=== PATIENT | female | born 1945 | race African-American/Black ===

== ENCOUNTER → 2016-10-10 | Outpatient (CLI) | payer OTHER ==
[2015-07-22 12:24] VITALS: BP 158/77
--- NOTE | 2016-10-10 10:47 | RAD ---
Indication pain and swelling. Grayscale color Doppler and spectral imaging was performed. The examination was targeted to the veins of the right lower extremity. Common femoral, femoral and popliteal vessels demonstrate normal flow compressibility and augmentation. No thrombus is seen. Some edema was noted during the examination. Superficial varicosities, compatible with varicose veins, were noted during the exam. IMPRESSION: Negative right lower extremity venous analysis for DVT
== END | disposition home or self-care (01) ==
LOC: US 09:39
PROVIDERS: ATTEND Nurse Practitioner Adult Health
DX: M79.604 Pain in right leg (principal); M79.89 Other specified soft tissue disorders
CPT/HCPCS: 93971

== ENCOUNTER 2020-12-04 13:09 | Emergency (ER) | payer MEDICARE, OTHER ==
[~2020-12-04] VITALS: Ht 165.1 cm; Wt 62.0 kg
[2020-12-04] MEDS ORDERED: VANCOMYCIN PER PHARMACY MC ONE (14:45)
[2020-12-04] MEDS ORDERED: VANCOMYCIN 1.5 GM in IV NORMAL SALINE 500ML BAG 500 ML IV ONE (14:45)
[2020-12-04 15:10] LABS: BASO # 0.1 x10^3/uL (0.0-0.2); BASO % 1 % (0-3); EOS # 0.1 x10^3/uL (0.0-0.7); EOS % 2 % (0-3); HEMATOCRIT 36.8 % (36.0-47.0); HEMOGLOBIN 12.2 g/dL (12.0-15.5); LYMPH # 1.6 x10^3/uL (1.0-4.8); LYMPH % 28 % (24-48); MEAN CORPUSCULAR HEMOGLOBIN 29 pg (25-35); MEAN CORPUSCULAR HGB CONC 33 g/dL (31-37); MEAN CORPUSCULAR VOLUME 87 fL (79-100); MONO # 0.8 x10^3/uL (0.0-1.1); MONO % 13 % (0-9); NEUT # 3.3 x10^3/uL (1.8-7.7); NEUT % 56 % (31-73); PLATELET COUNT 289 x10^3/uL (140-400); RED BLOOD COUNT 4.22 x10^6/uL (3.50-5.40); WHITE BLOOD COUNT 5.8 x10^3/uL (4.0-11.0)
[2020-12-04 15:22] LABS: CALCIUM 8.8 mg/dL (8.5-10.1); CREATININE 0.9 mg/dL (0.6-1.0); GFR 73.7; POTASSIUM 3.7 mmol/L (3.5-5.1)
--- NOTE | 2020-12-04 15:25 | RAD ---
EXAM: Left lower extremity venous Doppler. HISTORY: Left lower extremity pain/swelling. In the right. COMPARISON: None. FINDINGS: Grayscale and Doppler analysis of the left lower extremity deep venous system was performed with graded compression and augmentation. The common femoral, greater saphenous, superficial femoral , popliteal and calf veins were assessed. There is no evidence of deep venous thrombosis. A small popliteal cyst measures 2.5 x 5.0 x 1.0 cm. IMPRESSION: 1. No evidence of deep venous thrombosis. 2. Small popliteal cyst. Electronically signed by: Hiram Morel MD (12/04/2020 3:23 PM) [id number]
--- NOTE | 2020-12-04 15:31 | PHYS DOC ---
Past Medical History Past Medical History: Arthritis Past Surgical History: No Surgical History Smoking Status: Never Smoker Alcohol Use: None Drug Use: None General Adult EDM: Chief Complaint: INSECT BITE HPI: HPI: Patient is a 75 year old female who presents with states she had what she thought was a bug bite to her back of her left lower leg and is gotten swollen and tight feeling. She states she has been rubbing peroxide and alcohol in the area but is not helping. She states that her pain is an 8 out of 10 especially when she is up and walking on it. She states been going on for last 2 days. She states there was no actual bump. She states that her only history is arthritis. She states that she is fully vaccinated with for Covid. She states that she took Tylenol and naproxen this morning. Review of Systems: Review of Systems: Constitutional: Denies fever or chills. [] Eyes: Denies change in visual acuity. [] HENT: Denies nasal congestion or sore throat. [] Respiratory: Denies cough or shortness of breath. [] Cardiovascular: Denies chest pain or + left lower leg edema. [] GI: Denies abdominal pain, nausea, vomiting, bloody stools or diarrhea. [] : Denies dysuria. [] Musculoskeletal: Denies back pain or joint pain. + Left lower leg pain [] Integument: Denies rash. + Left lower leg redness [] Neurologic: Denies headache, focal weakness or sensory changes. [] Endocrine: Denies polyuria or polydipsia. [] Lymphatic: Denies swollen glands. [] Psychiatric: Denies depression or anxiety. [] Heart Score: C/O Chest Pain: No Risk Factors: Risk Factors: DM, Current or recent (<one month) smoker, HTN, HLP, family history of CAD, obesity. Risk Scores: Score 0 - 3: 2.5% MACE over next 6 weeks - Discharge Home Score 4 - 6: 20.3% MACE over next 6 weeks - Admit for Clinical Observation Score 7 - 10: 72.7% MACE over next 6 weeks - Early Invasive Strategies Current Medications: Current Medications Medications (Trade) Dose Ordered Sig/Reena Start Time Stop Time Status Last Admin Dose Admin Vancomycin HCl (Vanco Per Pharmacy) 1 each 1X ONCE 12/04/20 14:45 12/04/20 14:46 UNV Vancomycin HCl 1.5 gm/Sodium Chloride 500 ml @ 250 mls/hr 1X ONCE 12/04/20 14:45 12/04/20 16:44 12/04/20 14:45 250 MLS/HR Allergies: Allergies: Allergies Coded Allergies Type Severity Reaction Last Updated Verified No Known Drug Allergies 07/22/15 No Physical Exam: PE: Constitutional: Well developed, well nourished, no acute distress, non-toxic appearance. [] HENT: Normocephalic, atraumatic, bilateral external ears normal, oropharynx moist, no oral exudates, nose normal. [] Eyes: PERRLA, EOMI, conjunctiva normal, no discharge. [] Neck: Normal range of motion, no tenderness, supple, no stridor. [] Cardiovascular:Heart rate regular rhythm, no murmur [] Lungs & Thorax: Bilateral breath sounds clear to auscultation [] Abdomen: Bowel sounds normal, soft, no tenderness, no masses, no pulsatile masses. [] Skin: Warm, dry, left lower leg erythema, no rash. [] Back: No tenderness, no CVA tenderness. [] Extremities: Left lower leg tenderness, no cyanosis, no clubbing, ROM intact, left lower leg 1+ edema. [] Neurologic: Alert and oriented X 3, normal motor function, normal sensory function, no focal deficits noted. [] Psychologic: Affect normal, judgement normal, mood normal. [] Current Patient Data: Labs: Laboratory Tests Test 12/04/20 14:56 White Blood Count 5.8 x10^3/uL (4.0-11.0) Red Blood Count 4.22 x10^6/uL (3.50-5.40) Hemoglobin 12.2 g/dL (12.0-15.5) Hematocrit 36.8 % (36.0-47.0) Mean Corpuscular Volume 87 fL (79-100) Mean Corpuscular Hemoglobin 29 pg (25-35) Mean Corpuscular Hemoglobin Concent 33 g/dL (31-37) Red Cell Distribution Width 14.0 % (11.5-14.5) Platelet Count 289 x10^3/uL (140-400) Neutrophils (%) (Auto) 56 % (31-73) Lymphocytes (%) (Auto) 28 % (24-48) Monocytes (%) (Auto) 13 % (0-9) H Eosinophils (%) (Auto) 2 % (0-3) Basophils (%) (Auto) 1 % (0-3) Neutrophils # (Auto) 3.3 x10^3/uL (1.8-7.7) Lymphocytes # (Auto) 1.6 x10^3/uL (1.0-4.8) Monocytes # (Auto) 0.8 x10^3/uL (0.0-1.1) Eosinophils # (Auto) 0.1 x10^3/uL (0.0-0.7) Basophils # (Auto) 0.1 x10^3/uL (0.0-0.2) Laboratory Tests 12/04/20 14:56 Vital Signs: Vital Signs Date Time Temp Pulse Resp B/P (MAP) Pulse Ox O2 Delivery O2 Flow Rate FiO2 12/04/20 15:16 80 14 159/60 (93) 98 Room Air 12/04/20 13:49 99.4 99.4 EKG: EKG: [] Radiology/Procedures: Radiology/Procedures: [] Impression: [facility] [address] [place] [address] IMAGING REPORT Signed PATIENT: BOB ALVES CACCOUNT: [id number] : 1945 LOCATION: ER AGE: 75 SEX: F EXAM STATUS: REG ER ORD. PHYSICIAN: RHONDA REA APRN REASON: swelling, tenderness PROCEDURE: VENOUS LOWER EXTREMITY LEFT EXAM: Left lower extremity venous Doppler. HISTORY: Left lower extremity pain/swelling. In the right. COMPARISON: None. FINDINGS: Grayscale and Doppler analysis of the left lower extremity deep venous system was performed with graded compression and augmentation. The common femoral, greater saphenous, superficial femoral, popliteal and calf veins were assessed. There is no evidence of deep venous thrombosis. A small popliteal cyst measures 2.5 x 5.0 x 1.0 cm. IMPRESSION: 1. No evidence of deep venous thrombosis. 2. Small popliteal cyst. Electronically signed by: Hiram Morel MD (12/04/2020 3:23 PM) [id number] DICTATED and SIGNED BY: MAGDALENE MOREL MD DATE: 12/04/20 [id number] Course & Med Decision Making: Course & Med Decision Making Pertinent Labs and Imaging studies reviewed. (See chart for details) See HPI. Alert and oriented x4. Ambulatory steady gait. Speaks in full clear sentences. Pedal pulses strong present. Skin pink warm and dry. Cap refill less than 2 seconds. Blood work unremarkable. Lactic is normal. Vital signs within normal limits. Patient is nonseptic appearing. Patient has no major comorbidities. Patient is stable. Patient is given a dose of IV vancomycin in the ED. I will send her home on Clindamycin antibiotic. Patient to follow-up with her primary care provider soon as possible. [] Dragon Disclaimer: Dragjeremi Disclaimer: This electronic medical record was generated, in whole or in part, using a voice recognition dictation system. Departure Departure Impression: Primary Impression: Cellulitis Qualified Codes: L03.116 - Cellulitis of left lower limb Disposition: HOME / SELF CARE / HOMELESS Condition: STABLE Referrals: ALBER PAZ D.O. (PCP) Patient Instructions: Cellulitis Additional Instructions: Follow-up with your primary care provider this coming week. Take medication as prescribed and with food. If begin running fever or it worsens significantly then return to the emergency room. Scripts Clindamycin Hcl (CLINDAMYCIN HCL) 150 Mg Capsule 1 CAP PO TID, #30 CAP Prov: RHONDA REA APRN 12/04/20 RHONDA REA APRN Dec 04, 2020 15:31
[2020-12-04 15:35] LABS: ALBUMIN 3.6 g/dL (3.4-5.0); TOTAL BILIRUBIN 0.4 mg/dL (0.2-1.0); TOTAL PROTEIN 7.1 g/dL (6.4-8.2)
[2020-12-04] MEDS ORDERED: CLIN150C16 PO (16:32)
[2020-12-04 16:34] VITALS: BP 158/85
== END 2020-12-04 17:41 | disposition home or self-care (01) ==
LOC: ER 13:09
DX: L03.116 Cellulitis of left lower limb (principal); M19.90 Unspecified osteoarthritis, unspecified site
CPT/HCPCS: 36415; 80053; 83605; 85025; 87040; 93971; 96365; 96366; 99284; J3370; J7040

== ENCOUNTER → 2021-02-05 | Day surgery (SDC) | payer MEDICARE ==
[~2021-02-05] VITALS: Ht 162.6 cm; Wt 55.0 kg
[~2021-02-05] MED LIST: CLIN150C16 PO; HYDR-2761 PO; IV RINGERS,LACTATED 1000ML 1,000 ML IV SCH; LIDOCAINE 2% PF 5 ML VIAL. ONE; MULT-245 PO; NAPR-683 PO; PROPOFOL 10 MG/ML (20ML) VIAL. IV ONE
[2021-02-05 08:08] VITALS: BP 144/70
--- NOTE | 2021-02-05 09:34 | CONS ---
DATE OF CONSULTATION: 02/05/2021 UPDATED HISTORY AND PHYSICAL REASON FOR CONSULTATION: Dysphagia. HISTORY OF PRESENT ILLNESS: A 75-year-old female whose past medical history is significant for osteoarthritis, emphysema, dysphagia, and increased difficulties with solids more so than liquids. Risk factors for reflux include alcohol and caffeine use, but does not include tobacco use. She has had frequent impactions of meats and solids. Weight is stable. Esophagram has been unrevealing and with continued issues, she requests additional evaluation. PAST MEDICAL HISTORY: Arthritis, COPD. ALLERGIES: None. MEDICATIONS: Include clindamycin, hydrocodone, multivitamin, Naprosyn. FAMILY HISTORY: Significant for breast cancer with sister and child, diabetes with both parents, stomach cancer and esophageal cancer with child, hypertension with her brother. SOCIAL HISTORY: Former smoker. PAST SURGICAL HISTORY: Noncontributory. REVIEW OF SYSTEMS: Per records. PHYSICAL EXAMINATION: GENERAL: Reveals a well-nourished, well-developed female. VITAL SIGNS: Temp is 97.8, pulse is 90, respiratory rate is 20. LUNGS: Clear. CARDIOVASCULAR: Reveals an S1, S2, without S3, S4 or appreciable murmur. ABDOMEN: Reveals a soft abdomen, normal bowel sounds, appreciable hepatosplenomegaly. EXTREMITIES: No cyanosis, clubbing or edema. IMPRESSION: Dysphagia, etiology is to be determined. Differential includes Schatzki's ring, malignancy, eosinophilic esophagitis, achalasia, Scott's, peptic stricture, presbyesophagus and/or oropharyngeal disease. Therefore, recommend upper endoscopy with possible biopsy and dilatation. If this is unhelpful, then Speech Pathology evaluation would be pursued. SERGEY GIBSON: Celio TID: [id number]
[2021-02-05 09:57] VITALS: BP 185/75
--- NOTE | 2021-02-08 17:09 | PATHOLOGY ---
[facility] Accession Number: [id number] . 01 Material submitted: . gastrointestinal site - GASTRIC BIOPSIES . 01 Clinical history: . DYSPHAGIA EGD GASTRITIS . 02 Diagnosis: Gastric biopsies: - Mild chronic gastritis with focal edema and acute inflammation consistent with ulcer, and with focal intestinal metaplasia. LBQ 02/08/2021 1130 Local . 02 Comment: Sections of the gastric biopsy reveal segments of gastric antral mucosa showing congestion and mild chronic inflammation with focal edema and acute inflammation consistent with mucosa bordering an ulcer. There is also a small focus of intestinal metaplasia. A properly controlled immunoperoxidase stain for Helicobacter is negative for Helicobacter organisms. There is no evidence of malignancy. (JPM/db; 02/08/2021) . Special stain performed: Immunoperoxidase stain for Helicobacter on A1 . 02 Electronically signed: . Iván Shea MD, Pathologist NPI- [id number] . 01 Gross description: . Received in formalin labeled "Millan, Mora, gastric BX S" are multiple telles-brown soft tissue fragments measuring in aggregate 1.3 x 0.7 x 0.3 cm. The specimen is submitted entirely in A1. ([facility]; 02/06/2021) GZA/GZA 02/06/2021 1324 Local . 02 Pathologist provided ICD-10: K29.50, K29.00 . 02 CPT . 446520, R96344 Specimen Comment: A courtesy copy of this report has been sent to [phone], [phone] Specimen Comment: [id number] Specimen Comment: Report sent to DR. PAZ / DR ALEJANDRO Specimen Comment: A duplicate report has been generated due to demographic updates. Performed at: [address], [place], [place] [id number] MD Surya Garg MD Phone: [phone] Performed at: [address] [id number] MD Iván Shea MD Phone: [phone]
== END | disposition home or self-care (01) ==
LOC: SURG 07:31
PROVIDERS: ATTEND Internal Medicine Gastroenterology
DX: R13.10 Dysphagia, unspecified (principal); K22.2 Esophageal obstruction; K25.9 Gastric ulcer, unspecified as acute or chronic, without hemorrhage or perforation; K29.50 Unspecified chronic gastritis without bleeding; K31.89 Other diseases of stomach and duodenum; M19.90 Unspecified osteoarthritis, unspecified site; J44.9 Chronic obstructive pulmonary disease, unspecified; I10 Essential (primary) hypertension; E11.9 Type 2 diabetes mellitus without complications; F32.9 Major depressive disorder, single episode, unspecified; Z87.891 Personal history of nicotine dependence; Z79.899 Other long term (current) drug therapy; Z98.890 Other specified postprocedural states; Z80.3 Family history of malignant neoplasm of breast; Z83.3 Family history of diabetes mellitus; Z82.49 Family history of ischemic heart disease and other diseases of the circulatory system; Z80.0 Family history of malignant neoplasm of digestive organs
CPT/HCPCS: 43239; 43450; 88305; 88342; J2704

== ENCOUNTER 2021-07-26 11:24 | Emergency (ER) | payer MEDICARE ==
[~2021-07-26] VITALS: Ht 162.6 cm; Wt 60.0 kg
[~2021-07-26 11:24] MED LIST changes: -IV RINGERS,LACTATED 1000ML 1,000 ML IV SCH; -LIDOCAINE 2% PF 5 ML VIAL. ONE; -PROPOFOL 10 MG/ML (20ML) VIAL. IV ONE
[2021-07-26] MEDS ORDERED: LIDOCAINE (700MG/PATCH) PATCH. TD ONE (12:15)
[2021-07-26] MEDS ORDERED: ACETAMINOPHEN/CODEINE 300/30MG TABLET. PO ONE (12:15)
--- NOTE | 2021-07-26 12:39 | RAD ---
PQRS Compliance Statement: One or more of the following individualized dose reduction techniques were utilized for this examinat ion: 1. Automated exposure control 2. Adjustment of the mA and/or kV according to patient size 3. Use of iterative reconstruction technique CT cervical spine without contrast 07/26/2021 11:51 AM INDICATION: Neck pain COMPARISON: None available TECHNIQUE: Multiple axial CT images of the cervical spine were obtained without intravenous contrast. Coronal and sagittal reformats are provided. FINDINGS: Alignment of the cervical spine is normal. Skull base is intact. Craniocervical junction is normal in appearance. Atlantoaxial articulation is normal. Vertebral body heights are maintained without evidence for acute fracture. At C3-C4, there is a posterior discussed by complex with left central disc extrusion extending toward s the left neural foramen. There is mild facet arthropathy. Mild uncovertebral joint disease. Moderat e left and moderate neuroforaminal stenosis. Mild spinal canal stenosis. At C4-C5, there is a posterior disc osteophyte complex. Moderate to severe left facet arthropathy. Mi ld uncovertebral joint disease. Mild left neuroforaminal stenosis. No spinal canal stenosis. At C5-C6, there is a posterior disc osteophyte complex. Mild to moderate left facet arthropathy. Mild uncovertebral joint disease. Mild left neuroforaminal stenosis. No significant spinal canal stenosis . There is calcified ligament of flavum infolding at C6-C7 without significant spinal canal stenosis. There is no prevertebral soft tissue swelling. Right thyroid nodule measures 1.3 cm. Visualized porti ons of the lung apices are normal without evidence for suspicious pulmonary nodule or infiltrate. IMPRESSION: 1. No acute fracture or malalignment of the cervical spine. 2. Mild cervical spondylosis as detailed above. Electronically signed by: Carmen Lawrence MD (07/26/2021 12:37 PM) [id number]
--- NOTE | 2021-07-26 13:22 | RAD ---
EXAMINATION: XR LUMBAR SPINE 2-3V. HISTORY: 75 years Female Reason: low back pain / Spl. Instructions: / History: . . COMPARISON: None. FINDINGS: There is grade 1 spondylolisthesis of L4 over L5. There is suggestion of a pars defects at L5 level. The vertebral body heights are preserved. There is prominent disc height loss at the T11/12 with endp late degenerative sclerosis and prominent anterior osteophytes seen. There is a prominent the sclerotic degenerative changes of the facet joints in the lower lumbar spine . Also degenerative sclerotic changes in the right SI joint compatible with degenerative changes seen . IMPRESSION: Grade 1 spondylolisthesis of L4 over L5. Suggestion of L5 pars defects. This can be better evaluated with CT lumbar spine. Prominent degenerative changes in the lower lumbar spine facet joints. Electronically signed by: Alcides Arhculeta MD (07/26/2021 1:20 PM) [id number]
--- NOTE | 2021-07-26 14:18 | RAD ---
EXAMINATION: CT LUMBAR SPINE WO. Technique: Axial images with coronal and sagittal reconstructions are performed of lumbar spine witho ut contrast. One or more of the following radiation dose reduction techniques was used: automated exposure control , adjustment of mA and/or KV according to patient size, and/or utilization of iterative reconstructio n technique. HISTORY: 75 years Female Reason: back pain. COMPARISON: None. FINDINGS: There is a grade 1 spondylolisthesis of L4 over L5 associated with significant degenerative changes a t the facet joints with no pars fracture. The vertebral body heights are preserved. There is vacuum p henomenon at L5/S1 disc. Small posterior osteophytes are seen at L4/5 and L5/S1. There is evidence of disc herniation also at L2/3 and L3/4. Degenerative changes are noted at the sacroiliac joints. Adva nced degenerative changes of the lower lumbar spine facet joints also noted. This is associated with moderate foraminal stenosis at the lower lumbar spine levels L3/4 through L5/S1 bilaterally. No fract ures seen. IMPRESSION: Advanced degenerative changes. Grade 1 spondylolisthesis of L4 over L5. No acute fracture. Electronically signed by: Alcides Archuleta MD (07/26/2021 2:16 PM) [id number]
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
[2021-07-26] MEDS ORDERED: LIDO1ADH63 TP (14:53)
[2021-07-26 15:09] VITALS: BP 134/62
== END 2021-07-26 15:14 | disposition home or self-care (01) ==
LOC: ER 11:24
DX: M47.812 Spondylosis without myelopathy or radiculopathy, cervical region (principal); M54.50 Low back pain, unspecified
CPT/HCPCS: 72100; 72125; 72131; 99284-25

== ENCOUNTER 2021-09-06 10:39 | Emergency (ER) | payer OTHER, MEDICARE ==
[~2021-09-06] VITALS: Ht 157.5 cm; Wt 50.0 kg
[~2021-09-06 10:39] MED LIST changes: +LIDO1ADH63 TP
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
[2021-09-06 13:19] LABS: BACTERIA,URINE FEW /HPF (0-FEW); RBC,URINE 0 /HPF (0-2); YEAST,URINE PRESENT /HPF
[2021-09-06] MEDS ORDERED: MELO15TA23 PO (14:44)
[2021-09-06] MEDS ORDERED: FLUCONAZOLE 100 MG TABLET. PO ONE (14:45)
[2021-09-06 15:30] VITALS: BP 173/87
--- NOTE | 2021-09-07 07:47 | RAD ---
Exam: XR ELBOW COMPLETE_LEFT 3+VIEWS History: Left elbow pain after fall. Comparison: None. Findings: Osseous mineralization is normal. No fracture or dislocation is identified however the lateral view i s suboptimal limiting evaluation for fracture and effusion. There is calcification projecting over th e region of the ulnar collateral ligament. Partially visualized left chest pacemaker. Impression: 1. No fracture identified however suboptimal lateral view limits evaluation for fracture and effusio n. Consider repeat radiographs in 7-14 days to exclude occult fracture if there is persistent pain. 2. Calcification in the region of the UCL is favored to represent sequela of chronic injury. Electronically signed by: Ant Werner MD (09/06/2021 12:25 PM) [id number]
--- NOTE | 2021-09-07 07:47 | RAD ---
Exam: XR LT HIP (WITH OR WITHOUT PELVIS) 2 VIEWS History: Left hip pain after fall. Comparison: Lumbar spine CT 07/26/2021. Findings: Osseous mineralization is normal. No acute fracture or dislocaton. Degenerative changes of the left h ip with medial femoral acetabular space narrowing and well-corticated ossific bodies. Contralateral r ight femoral acetabular degenerative changes with joint space narrowing and marginal osteophytes. Ganesh ateral sacroiliac osteophytes and degenerative changes of the lower lumbar spine. The pubic rami are intact. Soft tissues are unremarkable. Impression: 1. Degenerative changes of the bilateral hips and lower lumbar spine. No acute osseous abnormality i n the pelvis and left hip. Electronically signed by: Ant Werner MD (09/06/2021 12:20 PM) [id number]
== END 2021-09-06 15:35 | disposition home or self-care (01) ==
LOC: ER 10:39
DX: S50.02XA Contusion of left elbow, initial encounter (principal); S70.02XA Contusion of left hip, initial encounter; R35.0 Frequency of micturition; M19.90 Unspecified osteoarthritis, unspecified site; W18.09XA Striking against other object with subsequent fall, initial encounter; Y93.89 Activity, other specified; Y92.89 Other specified places as the place of occurrence of the external cause; Y99.8 Other external cause status
CPT/HCPCS: 73080; 73502; 81001; 99284